=== PATIENT | male | born 1955 | race Caucasian/White ===

== ENCOUNTER → 2023-08-24 07:21 | Outpatient (REF) | payer MEDICARE, OTHER, SELFPAY | LOC: HWRAD 07:21 | PROVIDERS: ATTENDING PHYSICIAN Internal Medicine Critical Care Medicine; FAMILY PHYSICIAN Physician Assistant Medical | DX: D86.9 Sarcoidosis, unspecified (principal) | CPT/HCPCS: 71250 ==

== ENCOUNTER → 2024-09-01 11:21 | Outpatient (REF) | payer MEDICARE, OTHER, SELFPAY | LOC: HWRAD 11:21 | PROVIDERS: ATTENDING PHYSICIAN Internal Medicine Critical Care Medicine; FAMILY PHYSICIAN Physician Assistant Medical | DX: D86.9 Sarcoidosis, unspecified (principal) | CPT/HCPCS: 71046 ==

== ENCOUNTER 2024-09-09 11:09 | Outpatient (RCR) | payer MEDICARE, OTHER, SELFPAY ==
[2024-09-09 11:30] VITALS: BP 140/81
[2024-09-09] MEDS: AREDIA 260 MG IV (11:42)
== END 2024-10-06 23:59 | disposition home or self-care (01) ==
LOC: OID 11:09
PROVIDERS: ATTENDING PHYSICIAN Specialist; FAMILY PHYSICIAN Internal Medicine
DX: E83.52 Hypercalcemia (principal); D86.9 Sarcoidosis, unspecified; E83.110 Hereditary hemochromatosis; N18.31 Chronic kidney disease, stage 3a
CPT/HCPCS: 96365; 96366; J2430